=== PATIENT | male | born 1980 | race Caucasian/White ===

== ENCOUNTER 2016-11-06 09:29 | Inpatient (IN) | payer OTHER ==
[~2016-11-06] VITALS: Ht 177.8 cm; Wt 106.0 kg
[2016-11-06 10:02] LABS: MCH 29.3 PG (29.0-34.0); MCHC 33.8 G/DL (30.0-36.0); MCV 86.6 FL (86-99); MEAN PLAT.VOLUME 10.8 uM^3 (9.0-12.4); PLATELET COUNT 147 K/uL (156-360); RBC DIS.WIDTH-CV 11.6 % (11.8-14.6); RBC DIS.WIDTH-SD 36.5 % (39-53); RED BLOOD COUNT 5.43 M/uL (4.00-5.50); WHITE BLOOD COUNT 7.2 K/uL (4.1-10.2)
[2016-11-06 10:14] LABS: CHLORIDE 105 mEq/L (99-109); POTASSIUM 4.7 mEq/L (3.7-5.4); SODIUM 143 mEq/L (136-147)
[2016-11-06 10:15] LABS: GLUCOSE 93 mg/dL (70-99)
[2016-11-06 10:17] LABS: ANION GAP 12 MEQ/L (2-14)
[2016-11-06 10:19] LABS: GFR ESTIMATE (CALCULATED) > 59 mL/min/
[2016-11-06 10:20] LABS: UREA NITROGEN (BUN) 21 mg/dL (9-23)
[2016-11-06 10:22] LABS: TROP-I INTERPRETATION NEGATIVE; TROPONIN-I < 0.01 ng/mL (0.0-0.30)
[2016-11-06] MEDS ORDERED: PAROXETINE HCL20 MG PO (11:59)
[2016-11-06] MEDS ORDERED: NYSTATIN-TRIAMC15 G1 TP (12:00)
[2016-11-06 12:20] LABS: MAGNESIUM 2.9 mg/dL (1.3-2.7)
[2016-11-06 13:16] LABS: HDL CHOLESTEROL 44 MG/DL (Desirable>=40); LDL CHOLESTEROL 93 mg/dL (Desirable<100); NON-HDL CHOLESTEROL 153 mg/dL (Desirable<160); TOTAL CHOLESTEROL 197 mg/dL (Desirable<200); TRIGLYCERIDES 300 MG/DL (Normal: <150)
[2016-11-06 13:21] LABS: Estimated Average Glucose 94 mg/dL (70-123); HEMOGLOBIN A1c (GLYCOHEMOGLOB) 4.9 % HGB (Below 5.7)
[2016-11-06 13:38] VITALS: BP 166/114
[2016-11-06 14:02] VITALS: BP 130/78
[2016-11-06 15:15] VITALS: BP 129/72
[2016-11-06 16:29] LABS: TROP-I INTERPRETATION NEGATIVE; TROPONIN-I < 0.01 ng/mL (0.0-0.30)
[2016-11-06 19:00] VITALS: BP 138/70
[2016-11-06 22:06] LABS: TROP-I INTERPRETATION NEGATIVE; TROPONIN-I < 0.01 ng/mL (0.0-0.30)
[2016-11-06 22:54] VITALS: BP 109/53
[2016-11-07 03:31] VITALS: BP 128/70
[2016-11-07 07:08] VITALS: BP 125/72
[2016-11-07 11:00] LABS: HEMATOCRIT 44.9 % (38.0-50.0); MCH 30.3 PG (29.0-34.0); MCHC 34.5 G/DL (30.0-36.0); MCV 87.9 FL (86-99); MEAN PLAT.VOLUME 11.1 uM^3 (9.0-12.4); PLATELET COUNT 184 K/uL (156-360); RBC DIS.WIDTH-CV 11.8 % (11.8-14.6); RBC DIS.WIDTH-SD 37.8 % (39-53); RED BLOOD COUNT 5.11 M/uL (4.00-5.50); WHITE BLOOD COUNT 8.3 K/uL (4.1-10.2)
[2016-11-07 11:19] LABS: ANION GAP 8 MEQ/L (2-14); CHLORIDE 104 MEQ/L (99-109); POTASSIUM 4.2 MEQ/L (3.7-5.4); SAMPLE HEMOLYSIS CHECK 0; SAMPLE ICTERIC CHECK 0; SAMPLE LIPEMIA CHECK 1; SODIUM 141 MEQ/L (136-147)
[2016-11-07 11:24] LABS: GFR ESTIMATE (CALCULATED) > 59 mL/min/; GLUCOSE 76 mg/dL (70-99); UREA NITROGEN (BUN) 16 mg/dL (9-23)
[2016-11-07] MEDS ORDERED: ASPIR-LOW81 MG PO (11:27)
[2016-11-07 11:45] VITALS: BP 125/72; BP 142/66
== END 2016-11-07 14:12 | disposition home or self-care (01) | DRG 309 ==
LOC: EME 09:29 → EDOF 10:58 → ENRESERV 11:19 → EDOF 11:48 → 4EAST 13:28 → ENPENDDIS 11-07 → 4EAST 11-07 14:12
PROVIDERS: Emergency Medicine; Internal Medicine; Physician Assistant
DX: I48.0 Paroxysmal atrial fibrillation (principal); I10 Essential (primary) hypertension; E66.9 Obesity, unspecified; D69.6 Thrombocytopenia, unspecified; G47.30 Sleep apnea, unspecified; K50.90 Crohn's disease, unspecified, without complications; E78.1 Pure hyperglyceridemia
CPT/HCPCS: 71010; 80048; 80061; 83036; 83735; 84443; 84484; 85027; 93005; 93306; J1160; J2060; J7050